=== PATIENT | male | born 1975 | race American Indian/Alaskan Native ===

== ENCOUNTER 2019-05-21 08:28 | Day surgery (SDC) | payer OTHER ==
[~2019-05-21 08:28] MED LIST: SODIUM CHLORIDE 0.9% 1000 ML 1,000 ML IV SCH
--- NOTE | 2019-05-21 09:53 | Anesthesia Consultation ---
Anesthesia Consult and Med Hx Date of service: 05/21/19 - Airway Anesthetic Teeth Evaluation: Good ROM Head & Neck: Adequate Mental/Hyoid Distance: Adequate Mallampati Class: Class II Intubation Access Assessment: Good - Pulmonary Exam CTA: Yes - Cardiac Exam Cardiac Exam: No Murmur - Pre-Operative Health Status ASA Pre-Surgery Classification: ASA2 - Pulmonary Hx Smoking: Yes
--- NOTE | 2019-05-21 09:54 | Anesthesia Day of Surgery ---
Anesthesia Day of Surgery - Day of Surgery Patient Examined: Yes Patient H&P Reviewed: Yes Patient is NPO: Yes
[2019-05-21] MEDS ORDERED: LIDOCAINE MPF (2%) 20 MG/1 ML VIAL 5 ML ONE (10:00)
[2019-05-21] MEDS ORDERED: PROPOFOL 200 MG/20 ML VIAL IV ONE ×2 (10:36)
--- NOTE | 2019-05-21 11:14 | Short Stay Summary ---
Short Stay Documentation Date of service: 05/21/19 Narrative H&P: Patient is a 43 yo male who presents for colonoscopy for chronic diarrhea; multiple non-bloody loose bm's daily x 2+ months. no changes from clinic note. - History H&P: obtained from office Past Medical History: other (no changes) Past Surgical History: Other (no changes) Social history: no significant social history - Allergies and Medications Current Medications: Allergies No Known Allergies Allergy (Unverified 05/20/19 12:58) Active Medications Sodium Chloride (Nacl 0.9% 1000 Ml) 1,000 mls @ 50 mls/hr IV DIRECT PRATIBHA - Physical exam General appearance: no acute distress Lungs: Clear to auscultation Heart: Regular rate Gastrointestinal: normal - Brief post op/procedure progress note Date of procedure: 05/21/19 Pre-op diagnosis: Chronic diarrhea, abdominal pain Post-op diagnosis: same (colon polyp removed, internal hemorrhoids) Procedure: Colonoscopy with snare polypectomy and biopsy Anesthesia: MAC Findings: One colon polyp removed with cold snare otherwise, normal colonoscopy random bx's obtained to r/o microscopic colitis Surgeon: CLAUDIO BERG Estimated blood loss: minimal Pathology: list (Jar A - random colon bx's, Jar B - colon polyp) Specimen disposition: to lab Condition: stable - Disposition Condition at discharge: Good Disposition: DC-01 TO HOME OR SELFCARE Short Stay Discharge Plan Follow up with: PRIMARY CARE, [Primary Care Provider] - 7 Days
--- NOTE | 2019-05-21 11:17 | Operative Report ---
Operative Report Operative Report: Colonoscopy Procedure Note with snare polypectomy and biopsy Date of procedure: 05/21/2019 Endoscopist: Carlin Cartagena Pre-op diagnosis: Chronic diarrhea, abdominal pain Post-op diagnosis: Colon polyp Anesthesia: MAC Complications: No immediate complications Estimated blood loss: minimal Procedure: After consent was obtained, the patient was placed in the left lateral decubitus position. The olympus colonoscope was inserted into the patient's rectum under direct vision, and advanced to the cecum without difficulty. The patient tolerated the procedure well. The views of the mucosa were good. The quality of prep was good. The patient's vital signs were monitored continuously throughout the procedure. Findings: There was an ~6 mm sessile polyp in the transverse colon. The polyp was removed with cold snare polypectomy and retrieved. Internal hemorrhoids were visualized on retroflexion view. Otherwise, the colon appeared normal. Random biopsies were obtained to rule out microscopic colitis. Impression: 1. Colon polyp removed with cold snare polypectomy 2. Internal hemorrhoids 3. Otherwise, normal colonoscopy. Random biopsies obtained to rule out microscopic colitis. Recommendations: -follow-up pathology -repeat colonoscopy for surveillance in 5 years -return to GI clinic in 1 month/as previously scheduled
[2019-05-21 12:51] VITALS: BP 127/76
== END 2019-05-21 08:29 | disposition home or self-care (01) ==
LOC: GIO 08:28
PROVIDERS: ATTEND Internal Medicine Gastroenterology
DX: R19.7 Diarrhea, unspecified (principal); R10.9 Unspecified abdominal pain; D12.3 Benign neoplasm of transverse colon; K63.89 Other specified diseases of intestine; K64.8 Other hemorrhoids; Z87.891 Personal history of nicotine dependence
CPT/HCPCS: 45380; 45385; 88305; J2704; J7030